=== PATIENT | male | born 1995 | race Caucasian/White ===

== ENCOUNTER 2019-02-26 19:44 | Emergency (ER) | payer SELFPAY ==
[~2019-02-26] VITALS: Ht 177.8 cm; Wt 131.8 kg
[2019-02-26 19:47] VITALS: Ht 177.8 cm; Wt 131.8 kg
[2019-02-26] MEDS ORDERED: AMOXICILLIN500 M1 PO (20:44)
[2019-02-26] MEDS ORDERED: TORADOL10 MG PO (20:44)
[2019-02-26 20:57] VITALS: BP 142/89
== END 2019-02-26 20:58 | disposition home or self-care (01) ==
LOC: D.ER 19:44
DX: K02.9 Dental caries, unspecified (principal)